=== PATIENT | female | born 1950 | race Caucasian/White ===

== ENCOUNTER 2023-03-06 13:49 | Inpatient (IN) | payer MEDICARE, BC ==
[~2023-03-06] VITALS: Ht 160 cm; Wt 68.0 kg
[2023-03-06 14:58] LABS: CALCIUM 9.3 mg/dL (8.5-10.1); CARBON DIOXIDE 25 mmol/L (21-32); CHLORIDE 102 mmol/L (98-107); GLUCOSE 105 mg/dL (74-106); POTASSIUM 3.4 mmol/L (3.5-5.1); SODIUM SERUM 137 mmol/L (136-145); UREA NITROGEN, BLOOD 14 mg/dL (7-18)
[2023-03-06 15:01] LABS: BASOPHILS % (AUTO) 0.6 % (0.0-2.0); EOSINOPHILS # (AUTO) 0.1 K/uL (0.0-0.7); EOSINOPHILS % (AUTO) 1.1 % (0.0-7.0); HEMATOCRIT 37.3 % (31.2-41.9); HEMOGLOBIN 12.7 g/dL (10.9-14.3); LYMPHOCYTES # (AUTO) 2.5 K/uL (0.8-4.8); LYMPHOCYTES % (AUTO) 35.6 % (20.5-51.5); MEAN CORPUSCULAR HEMOGLOBIN 31.9 uug (24.7-32.8); MEAN CORPUSCULAR HGB CONC 34 g/dL (32.3-35.6); MEAN CORPUSCULAR VOLUME 93.7 fL (75.5-95.3); MONOCYTES # (AUTO) 0.5 K/uL (0.1-1.30); MONOCYTES % (AUTO) 6.7 % (0.0-11.0); NEUTROPHILS # (AUTO) 3.9 K/uL (1.8-8.9); PLATELET COUNT (AUTO) 350 K/uL (179-408); RED BLOOD CELL COUNT(AUTO) 3.98 MIL/uL (3.63-4.92)
[2023-03-06 15:11] LABS: NT-PRO BNP 32 pg/mL (0-125)
[2023-03-06] MEDS ORDERED: IOHEXOL 350 100 ML INFUS..BTL ONE (16:04)
[2023-03-06] MEDS ORDERED: SWABABLE VALVE TRANSFER SET EA MC ONE (16:04)
[2023-03-06] MEDS ORDERED: IV NORMAL SALINE 250 ML IV ONE (16:04)
[2023-03-06] MEDS ORDERED: REMEDY ESSENTIAL ZINC PASTE 113 GM TP PRN (17:15)
[2023-03-06] MEDS ORDERED: ACETAMINOPHEN 325 MG TABLET PO PRN (17:15)
[2023-03-06] MEDS ORDERED: ONDANSETRON 4 MG/2 ML VIAL IV PRN (17:15)
[2023-03-06] MEDS ORDERED: MAGNESIUM HYDROXIDE 30 ML LIQUID UDC PO PRN (17:15)
[2023-03-06 21:10] VITALS: BP 157/67; TEMP 97.9; O2SAT 97
[2023-03-07] VITALS: BP 145/65; TEMP 98.2; O2SAT 97
[2023-03-07 04:00] VITALS: BP 152/70; TEMP 98.1; O2SAT 99
[2023-03-07 07:40] LABS: CALCIUM 8.9 mg/dL (8.5-10.1); CARBON DIOXIDE 23 mmol/L (21-32); CHLORIDE 104 mmol/L (98-107); GLUCOSE 166 mg/dL (74-106); MAGNESIUM 2.3 mg/dL (1.8-2.4); PHOSPHOROUS 3.9 mg/dL (2.5-4.9); SODIUM SERUM 137 mmol/L (136-145); UREA NITROGEN, BLOOD 15 mg/dL (7-18)
[2023-03-07 08:00] VITALS: BP 140/61; TEMP 96.1; O2SAT 96
[2023-03-07 09:16] LABS: BASOPHILS # (AUTO) 0.1 K/UL (0.0-0.2); BASOPHILS % (AUTO) 0.8 % (0.0-2.0); EOSINOPHILS # (AUTO) 0.1 K/uL (0.0-0.7); EOSINOPHILS % (AUTO) 1.6 % (0.0-7.0); HEMATOCRIT 35.8 % (31.2-41.9); HEMOGLOBIN 12.3 g/dL (10.9-14.3); LYMPHOCYTES # (AUTO) 2.7 K/uL (0.8-4.8); LYMPHOCYTES % (AUTO) 35.7 % (20.5-51.5); MEAN CORPUSCULAR HEMOGLOBIN 31.8 uug (24.7-32.8); MEAN CORPUSCULAR HGB CONC 34 g/dL (32.3-35.6); MEAN CORPUSCULAR VOLUME 92.9 fL (75.5-95.3); MONOCYTES # (AUTO) 0.7 K/uL (0.1-1.30); MONOCYTES % (AUTO) 8.9 % (0.0-11.0); PLATELET COUNT (AUTO) 360 K/uL (179-408); RED BLOOD CELL COUNT(AUTO) 3.86 MIL/uL (3.63-4.92); RED CELL DISTRIBUTION WIDTH 13.2 % (12.3-17.7); WHITE BLOOD COUNT (AUTO) 7.5 K/uL (3.8-11.8)
[2023-03-07 09:18] LABS: DIFFERENTIAL COMMENT 1
[2023-03-07 11:38] VITALS: BP 123/52; TEMP 97; O2SAT 94
[2023-03-07 15:08] VITALS: BP 141/60; TEMP 97.7; O2SAT 97
== END 2023-03-07 17:45 | disposition home or self-care (01) | DRG 948 ==
LOC: ER 13:52 → TELE3 17:00
PROVIDERS: ADMIT Internal Medicine; ATTEND Internal Medicine
DX: G93.32 Myalgic encephalomyelitis/chronic fatigue syndrome (principal); R06.02 Shortness of breath; U09.9 Post COVID-19 condition, unspecified; M79.7 Fibromyalgia; E78.5 Hyperlipidemia, unspecified; C50.911 Malignant neoplasm of unspecified site of right female breast; R79.89 Other specified abnormal findings of blood chemistry; R79.1 Abnormal coagulation profile; Z88.6 Allergy status to analgesic agent; E03.9 Hypothyroidism, unspecified
CPT/HCPCS: 36415; 71045; 71275; 83735; 84100; 84484; 85025; 93005; 93307; A4663; G0378; Q9967